=== PATIENT | female | born 1995 | race Caucasian/White ===

== ENCOUNTER 2020-10-21 12:33 | Outpatient (CLI) | payer OTHER, SELFPAY ==
[2020-10-22 01:51] LABS: SARS-CoV-2 PCR by NAA Not Detected (NotDetected)
== END 2020-10-21 12:34 | disposition home or self-care (01) ==
LOC: CSHLAB 12:33
PROVIDERS: ATTEND Obstetrics & Gynecology
DX: Z20.822 Contact with and (suspected) exposure to COVID-19 (principal)
CPT/HCPCS: 87635; U0003; U0005

== ENCOUNTER 2020-10-24 08:45 | Inpatient (IN) | payer OTHER, SELFPAY ==
[~2020-10-24 08:45] MED LIST: Bupivacaine 0.25% HCL 30 ML VIAL ONE
[2020-10-24] MEDS ORDERED: hydrALAZINE 20 MG/ML VIAL SLOW IVP PRN ×2 (08:49→17:56)
[2020-10-24] MEDS ORDERED: Ibuprofen 800 MG TAB PO PRN (08:49)
[2020-10-24] MEDS ORDERED: Diphenoxylate HCl/Atropine Tablet PO PRN ×2 (08:49)
[2020-10-24] MEDS ORDERED: Ondansetron PF 4 MG/2 ML Vial IVP PRN ×2 (08:49→12:52)
[2020-10-24] MEDS ORDERED: Acetaminophen 500 MG TAB PO PRN (08:49)
[2020-10-24] MEDS ORDERED: Lidocaine 1% (PF) 30 ML VIAL SC PRN (08:49)
[2020-10-24] MEDS ORDERED: HYDROcodone/Acetaminophen 5/325 mg Tablet PO PRN ×4 (08:49→17:56)
[2020-10-24] MEDS ORDERED: Promethazine HCl 25 MG/ML VIAL IM PRN ×2 (08:49→12:52)
[2020-10-24] MEDS ORDERED: Docusate 100 MG CAP PO PRN (08:49)
[2020-10-24] MEDS ORDERED: Misoprostol 200 MCG TAB PR PRN (08:49)
[2020-10-24] MEDS ORDERED: Butorphanol Tartrate 1 MG/ML VIAL SLOW IVP PRN (08:49)
[2020-10-24 09:40] VITALS: BMI 24.4
[2020-10-24] MEDS ORDERED: NS w/ Oxytocin 30 units 500 ML IV PRN (09:51)
[2020-10-24 12:13] LABS: Hemoglobin 12.7 g/dL (12.0-15.5); Mean Corpuscular HGB CONC 35.1 g/dL (32.0-36.0); Mean Corpuscular Hemoglobin 31.8 pg (27.0-33.0); Mean Corpuscular Volume 90.7 fl (81.6-98.3); Mean Platelet Volume 10.5 fl (7.4-10.4); Platelet Count 211 10x3/uL (150-450); RBC Distribution Width 12.9 % (11.5-14.5); Red Blood Cell (RBC) Count 3.99 10x6/uL (3.90-5.03); White Blood Cell (WBC) Count 8.4 10x3/uL (3.5-10.5)
[2020-10-24] MEDS ORDERED: Fentanyl 4 mcg/Bup 0.1% Cadd 100 ML ONE (12:19)
[2020-10-24] MEDS ORDERED: diphenhydrAMINE 50 MG/ML VIAL IVP PRN (12:52)
[2020-10-24] MEDS ORDERED: Acetaminophen 325 MG TAB PO PRN (12:52)
[2020-10-24] MEDS ORDERED: Lactated Ringer's 500 ML IV PRN (12:52)
[2020-10-24] MEDS ORDERED: Eucerin (Mineral Oil/Petrolatum,White) 30 gm Jar TOP PRN (12:52)
[2020-10-24] MEDS ORDERED: Naloxone HCl 0.4 mg/ml Vial IVP PRN ×2 (12:52)
[2020-10-24] MEDS ORDERED: ePHEDrine 50 MG/ML VIAL SLOW IVP PRN (12:52)
[2020-10-24] MEDS ORDERED: Fentanyl 4 mcg/Bupivacaine 0.1% Cassette 100 ML EPIDURAL SCH (13:00)
[2020-10-24] MEDS ORDERED: Communication Order-Pharmacy FS SCH (13:00)
[2020-10-24 13:01] LABS: Hep B Surf Ag Non-Reactive S/CO (NonReactive)
[2020-10-24 13:02] LABS: Syphilis Antibody Nonreactive (Nonreactive); Syphilis Antibody Index 0.04 S/CO (<1.00 Non-Reactive)
[2020-10-24 13:35] LABS: HBSAg Index 0.13 S/CO (0-0.99)
[2020-10-24] MEDS ORDERED: Milk Of Magnesia 30 ML UDCUP PO PRN (17:56)
[2020-10-24] MEDS ORDERED: Zolpidem Tartrate 5 MG TAB PO PRN (17:56)
[2020-10-24] MEDS ORDERED: diphenhydrAMINE 25 MG CAP PO PRN (17:56)
[2020-10-24] MEDS ORDERED: Lanolin Ointment 7 GM TUBE TOP PRN (17:56)
[2020-10-24] MEDS ORDERED: Misoprostol 200 MCG TAB VAG PRN (17:56)
[2020-10-24] MEDS ORDERED: Adacel (T-DAP) 0.5 ML SYRINGE IM ONE (17:56)
[2020-10-24] MEDS ORDERED: Benzocaine-Menthol 82.5 ML CAN TOP PRN (17:56)
[2020-10-24] MEDS ORDERED: Bisacodyl 10 MG SUPP PR PRN (17:56)
[2020-10-24] MEDS ORDERED: Preparation H Ointment 28 GM TUBE PR PRN (17:56)
[2020-10-24] MEDS ORDERED: Witch Hazel-Glycerin 1 EACH JAR TOP PRN (17:59)
[2020-10-24] MEDS ORDERED: NS w/ Oxytocin 30 units 500 ML IVPB SCH (18:15)
[2020-10-24] MEDS: Lactated Ringer's 1,000 ML IV SCH ×2 (18:26→23:30)
[2020-10-24] MEDS: Ibuprofen 800 MG TAB PO SCH (22:11)
[2020-10-24] MEDS: Docusate Calcium (SURFAK) 240 MG CAP PO SCH (22:12)
[2020-10-25] MEDS: Ibuprofen 800 MG TAB PO SCH ×3 (05:16→22:41)
[2020-10-25] MEDS: Lactated Ringer's 1,000 ML IV SCH ×3 (07:17→16:51)
[2020-10-25] MEDS: Ferrous Sulfate 325 MG TAB PO SCH ×2 (07:56→16:50)
[2020-10-25] MEDS: Docusate Calcium (SURFAK) 240 MG CAP PO SCH ×2 (10:31→22:00)
[2020-10-25] MEDS: Prenatal Vitamin 1 TAB PO SCH (10:32)
[2020-10-26] MEDS: Lactated Ringer's 1,000 ML IV SCH (00:41)
[2020-10-26] MEDS: Ibuprofen 800 MG TAB PO SCH (05:40)
[2020-10-26 07:47] VITALS: BP 141/84; TEMP 98.7
[2020-10-26] MEDS: Docusate Calcium (SURFAK) 240 MG CAP PO SCH (08:49)
[2020-10-26] MEDS: Prenatal Vitamin 1 TAB PO SCH (08:49)
[2020-10-26] MEDS: Ferrous Sulfate 325 MG TAB PO SCH (08:51)
== END 2020-10-26 14:10 | disposition home or self-care (01) | DRG 807 ==
LOC: CSHLD/OP 08:45 → CSHLD 18:07 → CSHPP 21:37
PROVIDERS: ADMIT Obstetrics & Gynecology; ATTEND Obstetrics & Gynecology
PROC: 10E0XZZ Delivery of Products of Conception, External Approach (ICD-10-PCS; principal; 2020-10-24)
PROC: 0KQM0ZZ Repair Perineum Muscle, Open Approach (ICD-10-PCS; 2020-10-24)
PROC: 4A0HXCZ Measurement of Products of Conception, Cardiac Rate, External Approach (ICD-10-PCS; 2020-10-24)
DX: O70.1 Second degree perineal laceration during delivery (principal); Z37.0 Single live birth; Z3A.39 39 weeks gestation of pregnancy
CPT/HCPCS: 36415; 51702; 85027; 86780; 86850; 86900; 86901; 87340; J2001; J2590; S0020

== ENCOUNTER 2023-06-07 09:51 | Day surgery (SDC) | payer OTHER, SELFPAY ==
[2023-06-07 10:17] VITALS: BMI 26.4
[2023-06-07] MEDS ORDERED: hydrALAZINE 20 MG/ML VIAL SLOW IVP PRN (10:55)
[2023-06-07] MEDS ORDERED: Lactated Ringer's 1,000 ML IV SCH (11:00)
[2023-06-07] MEDS ORDERED: Betamet Acet/Betamet Na Ph 30 MG/5 ML VIAL IM SCH ×2 (13:55→14:15)
== END 2023-06-07 14:01 | disposition home health service (06) ==
LOC: CSHLD/OP 09:51
PROVIDERS: ATTEND Obstetrics & Gynecology
DX: O47.03 False labor before 37 completed weeks of gestation, third trimester (principal); O30.041 Twin pregnancy, dichorionic/diamniotic, first trimester; Z79.899 Other long term (current) drug therapy; Z3A.35 35 weeks gestation of pregnancy
CPT/HCPCS: J0702